=== PATIENT | female | born 1940 | race Caucasian/White ===

== ENCOUNTER 2020-12-28 12:34 | Emergency (ER) | payer MEDICARE, OTHER ==
[~2020-12-28 12:34] MED LIST: ARICEPT 5MG TABL5 MG PO; ASPIRIN CHEWABL81 MG PO; CETIRIZINE HCL10 MG PO; CILOSTAZOL100 MG PO; CITRACAL + D E1 EACH PO; ELIQUIS2.5 MG PO; FLONASE ALLER15.8 ML; LOPRESSOR25 MG PO; MELATONIN10 M2 PO; METFORMIN HCL500 M1 PO; PEPCID AC20 MG PO; PRILOSEC20 MG PO; PRINIVIL20 MG PO; SINGULAIR10 MG PO; STOOL SOFTENER100 MG PO; TYLENOL PM EX-1 EACH PO; VITAMIN B-121000 MC1 PO; VITAMIN D1000 UNIT PO; VITAMIN E400 UNI1 PO; WELLBUTRIN SR100 MG PO; ZOLOFT100 M1 PO; [UNRECOGNIZED DRUG - OTHER] PO
[2020-12-28 14:38] LABS: BASOPHIL 0.2 % (0-2); EOSINOPHIL 1.8 % (0-7); HCT 43.3 % (37.0-47.0); HGB 14.1 g/dl (12.5-16.0); LYMPHOCYTE 16.3 % (15-48); MCH 31.3 pg (25.0-31.0); MCHC 32.6 g/dL (32.0-36.0); MCV 96.2 fL (78.0-100.0); MONOCYTE 11.5 % (0-12); MPV 10.3 fL (6.0-9.5); NEUTROPHIL 69.4 % (41-80); NRBC 0; PLT 247 K/uL (150-400); WBC 12.5 K/uL (4.0-10.5)
[2020-12-28 14:52] LABS: BUN/CREAT RATIO (CALC) 19.6 RATIO; CREATININE 1.12 mg/dL (0.51-0.95); POTASSIUM 4.5 mmol/L (3.5-5.1)
[2020-12-28 16:23] LABS: BILIRUBIN NEGATIVE (NEGATIVE); BLOOD NEGATIVE Ery/uL (NEGATIVE); CLARITY CLEAR (CLEAR); COLOR YELLOW (YELLOW); GLUCOSE (U) NORMAL (NORMAL); LEUKOCYTES 1+ Leu/uL (NEGATIVE); NITRITE POSITIVE (NEGATIVE); PROTEIN NEGATIVE (NEGATIVE); SPECIFIC GRAVITY 1.025 (1.001-1.030); UROBILINOGEN 0.2 mg/dL (0.2-1.0); pH 5.5 (5.0-9.0)
[2020-12-28 16:30] LABS: URINARY WBC 20-50
[2020-12-28 16:31] LABS: BACTERIA 1+
[2020-12-28] MEDS ORDERED: ULTRAM50 MG PO (18:28)
[2020-12-28] MEDS ORDERED: MACROBID100 MG PO (18:30)
[2021-01-04] MEDS ORDERED: VITAMIN B-121000 MC1 PO (11:54)
[2021-01-04] MEDS ORDERED: ARICEPT 5MG TABL5 MG PO (11:56)
[2021-01-04] MEDS ORDERED: TRELEGY ELLIPT1 EACH INH (12:06)
[2021-01-04] MEDS ORDERED: VENTOLIN HFA IN18 GM INH (12:07)
[2021-01-04] MEDS ORDERED: MUCINEX 600MG600 MG PO (12:08)
[2021-01-04] MEDS ORDERED: COLACE100 MG PO (12:08)
[2021-01-05] MEDS ORDERED: DOXYCYCLINE MO100 M1 PO (17:16)
[2021-01-05] MEDS ORDERED: NORCO 5-325 TA1 EACH PO (17:16)
== END 2020-12-28 19:19 | disposition home or self-care (01) ==
LOC: FER 12:34
PROVIDERS: Nurse Practitioner Family
DX: S80.01XA Contusion of right knee, initial encounter (principal); S80.812A Abrasion, left lower leg, initial encounter; S80.811A Abrasion, right lower leg, initial encounter; N39.0 Urinary tract infection, site not specified; I10 Essential (primary) hypertension; E11.9 Type 2 diabetes mellitus without complications; J44.9 Chronic obstructive pulmonary disease, unspecified; I48.91 Unspecified atrial fibrillation; Z87.891 Personal history of nicotine dependence; Z88.5 Allergy status to narcotic agent; Z88.1 Allergy status to other antibiotic agents; Z79.01 Long term (current) use of anticoagulants; Z79.899 Other long term (current) drug therapy; W05.0XXA Fall from non-moving wheelchair, initial encounter; Y92.009 Unspecified place in unspecified non-institutional (private) residence as the place of occurrence of the external cause
CPT/HCPCS: 36415; 73502; 73564; 73700; 80048; 81001; 85025; 87076; 87088; 87186; 90471; 90715; 93005; J7030